=== PATIENT | female | born 1960 | race Two or more races ===

== ENCOUNTER 2022-09-25 10:19 | Outpatient (CLI) | payer OTHER | END 2022-09-25 10:32 | disposition home or self-care (01) | LOC: LAB 10:19 | PROVIDERS: ATTEND Orthopaedic Surgery | DX: D64.89 Other specified anemias (principal); E88.89 Other specified metabolic disorders; D68.8 Other specified coagulation defects; N39.0 Urinary tract infection, site not specified; Z22.322 Carrier or suspected carrier of Methicillin resistant Staphylococcus aureus; E11.9 Type 2 diabetes mellitus without complications; Z76.89 Persons encountering health services in other specified circumstances; I49.9 Cardiac arrhythmia, unspecified; I10 Essential (primary) hypertension ==

== ENCOUNTER 2022-10-06 05:34 | Day surgery (SDC) | payer OTHER ==
[~2022-10-06] VITALS: Ht 160 cm; Wt 108.0 kg
[~2022-10-06 05:34] MED LIST: ADULT LOW DOSE81 M1 PO; CELEBREX200MG PO; CLONAZEPAM0.5 MG PO; GABAP PO; SINGULAIR10 MG PO; [UNRECOGNIZED DRUG - OTHER] PO
[2022-10-06] MEDS ORDERED: FLUOXETINE HCL20 MG (07:48)
[2022-10-06] MEDS ORDERED: ZOLPIDEM TARTRA10 MG (07:48)
[2022-10-06] MEDS ORDERED: GABAPENTIN800 M1 (07:48)
== END 2022-10-06 16:50 | disposition home or self-care (01) ==
LOC: CIR.AMB 05:34 → SURH 05:34 → O/R 05:34 → SURH 09:00 → EDSTATUS 12:30 → SURH 12:30 → O/R 16:50 → CIR.AMB 16:50
PROVIDERS: ATTEND Orthopaedic Surgery
DX: M65.861 Other synovitis and tenosynovitis, right lower leg (principal); M76.821 Posterior tibial tendinitis, right leg; S86.311A Strain of muscle(s) and tendon(s) of peroneal muscle group at lower leg level, right leg, initial encounter; M21.071 Valgus deformity, not elsewhere classified, right ankle
CPT/HCPCS: 28300; 27691; L8699

== ENCOUNTER 2022-11-11 08:46 | Outpatient (CLI) | payer OTHER ==
[~2022-11-11 08:46] MED LIST changes: +FLUOXETINE HCL20 MG; +GABAPENTIN800 M1; +ZOLPIDEM TARTRA10 MG
== END 2022-11-11 08:56 | disposition home or self-care (01) ==
LOC: RAD 08:46 → MAMO-SONO 08:46 → RAD 08:56
PROVIDERS: ATTEND Orthopaedic Surgery
DX: M76.821 Posterior tibial tendinitis, right leg (principal)

== ENCOUNTER 2023-03-31 07:37 | Outpatient (CLI) | payer OTHER | END 2023-03-31 07:39 | disposition home or self-care (01) | LOC: LAB 07:37 | PROVIDERS: ATTEND Orthopaedic Surgery | DX: E55.9 Vitamin D deficiency, unspecified (principal); M85.9 Disorder of bone density and structure, unspecified; E56.1 Deficiency of vitamin K ==

== ENCOUNTER 2024-08-23 07:57 | Outpatient (CLI) | payer OTHER | END 2024-08-23 08:00 | disposition home or self-care (01) | LOC: RAD 07:57 | PROVIDERS: ATTEND Orthopaedic Surgery | DX: M25.851 Other specified joint disorders, right hip (principal); M25.852 Other specified joint disorders, left hip; M17.0 Bilateral primary osteoarthritis of knee ==